=== PATIENT | female | born 1955 | race Caucasian/White ===

== ENCOUNTER → 2018-09-07 | Outpatient (CLI) | payer OTHER ==
--- NOTE | 2018-09-08 13:17 | PCVCIMAG ---
APPROVED REPORT Study performed: 09/07/2018 13:59:55 Exam: Stress Echocardiogram Indication: Palpitations, Irregular heart beat, Hypertension Patient Location: Echo lab Stress Nurse: Madeline Worthy RN Status: routine Ht: 5 ft 2 in HR: 85 bpm BP: 104/80 mmHg Rhythm: NSR Medical History Medical History: HTN Procedure The patient underwent an Exercise Stress Test using the Humberto Protocol. Blood pressure, heart rate, and EKG were monitored. An Echocardiogram was performed by geologic technician in four stages in quad fashion. At peak stress, four selected images were obtained and placed side by side with resting images for comparison. Stress Test Details Stress Test: Exercise stress testing was performed using a Humberto protocol. HR Resting HR: 85 bpmMax Heart Rate (APMHR): 158 bpm Max HR Achieved: 137 bpmTarget HR (85% APMHR): 134 bpm % of APMHR: 86 Recovery HR: 92 bpm HR response to stress: Normal HR response to stress BP Resting BP: 104/80 mmHg Max BP: 140/80 mmHg Recovery BP: 120/70 mmHg BP response to stress: Normal blood pressure response to stress. ECG Resting ECG: Sinus Rhythm Stress ECG: Sinus Rhythm, PVC's, PAC's. Arrhythmia: APC's, VPC's Recovery ECG: Sinus Rhythm Clinical Reason for Termination: Maximal effort Stress Symptoms: Dyspnea Exercise duration: 6 min 34 sec Highest Stage Achieved: Stage 2: 2.5 mph at 12% grade. Exercise capacity: 8.70 METs Overall Exercise Capacity for Age: Poor Stress ECG Conclusion 1. Subjectively negative for ischemia 2. Echocardiographic negative for ischemia 2. Poor functional capacity Pre-Stress Echo The resting Echocardiogram showed normal left ventricular contractility with an estimated Ejection Fraction of about 55-60%. Normal wall motion in all segments on baseline images. Post-Stress Echo The stress Echocardiogram showed normal left ventricular contractility with an estimated Ejection Fraction of about 60-65%. Normal augmentation of wall motion in all segments on post stress images. Clinical No clinical or ECG evidence for ischemia. Conclusion Clinical Response: Non-ischemic Exercise Capacity: Below Average Stress ECG Response: Non-ischemic Stress Echo Images: Non-ischemic 1. Low risk study for ischemia 2. Poor functional capacity Other Information Study Quality: Adequate <Conclusion> 1. Low risk study for ischemia 2. Poor functional capacity
== END | disposition home or self-care (01) ==
LOC: PCVCIMAG 13:50
PROVIDERS: ATTEND Internal Medicine
DX: R00.2 Palpitations (principal); I10 Essential (primary) hypertension; I49.9 Cardiac arrhythmia, unspecified
CPT/HCPCS: 93325; 93351